=== PATIENT | female | born 1955 | race Caucasian/White ===

== ENCOUNTER → 2021-04-16 | Outpatient (CLI) | payer MEDICARE, OTHER ==
--- NOTE | 2021-04-17 12:41 | SLEEP ---
DATE OF STUDY: 04/16/2021 HOME SLEEP STUDY ATTENDING PHYSICIAN: Zainab Hansen MD. The patient is a 65-year-old who weighs 200 pounds with a BMI of 34. The patient's [place] score was 4. The patient underwent home sleep study at [facility]. Total recording time was 781 minutes. During the night study, the patient had 40 central apneas, 2 obstructive apneas, 20 mixed apneas and 107 hypopneas. The patient's AHI was 19.3 per hour. Nocturnal oximetry study revealed an average oxygen saturation was 89% with lowest of 75%. 327 minutes were spent with oxygen saturation less than 90%. Mean heart rate 96 beats per minute. IMPRESSION: 1. Moderate obstructive sleep apnea at an AHI of 19.3 per hour. 2. Nocturnal hypoxia secondary to obstructive sleep apnea and suspected hypoventilation. RECOMMENDATIONS: 1. The patient would benefit from treatment of sleep apnea with CPAP. This can be done as in-home auto titration versus in-lab CPAP titration study. 2. Once the patient is optimally treated with CPAP, then follow up in 4-6 weeks to assess compliance and to document clinical improvement. 3. Weight loss is advised. 4. Avoid CONFIGURATION ENGINEER depressants. 5. Cautioned regarding driving until symptoms of sleep apnea resolve with above recommendations. AAMIR DR: Zenobia TID: [id number] CC: ZAINAB HANSEN MD
== END ==
LOC: RT 09:21
PROVIDERS: ATTEND Family Medicine
DX: G47.33 Obstructive sleep apnea (adult) (pediatric) (principal); G47.34 Idiopathic sleep related nonobstructive alveolar hypoventilation
CPT/HCPCS: G0399

== ENCOUNTER → 2021-04-18 | Outpatient (CLI) | payer MEDICARE ==
--- NOTE | 2021-04-19 11:28 | SLEEP ---
DATE OF STUDY: 04/18/2021 SLEEP STUDY ATTENDING PHYSICIAN: Zainab Hansen MD. The patient is a 65-year-old, who weighs 200 pounds with a BMI of 34. The patient had a home sleep study and was found to have moderate MINI at an AHI of 19.3 per hour. The patient returned to the sleep lab for CPAP titration study. During the night study, the patient spent 442 minutes in bed and slept for 216 minutes with a low sleep efficiency of 49%. Sleep latency was 88 minutes with absent REM sleep. Sleep architecture showed increased stage 1 and stage 2 sleep, normal slow wave and absent REM sleep. EKG monitoring revealed an average heart rate of 97 beats per minute. Occasional sinus tachycardia observed. Maximum heart rate 107 beats per minute. PLMs were seen at index of 11 per hour and none caused the EEG arousals. The patient was started on CPAP at 5 cm water and titrated up to 9 cm water. At the final pressure, the patient slept for 61 minutes. The patient had a supine sleep, but no REM sleep. The patient's AHI was reduced to 3 per hour and oxygen saturations remained above 88% with one desaturation of 84%. IMPRESSION: 1. Moderate sleep apnea diagnosed by home sleep study. 2. Mild periodic limb movements without any significant EEG arousals. RECOMMENDATIONS: 1. CPAP at 9 cm water should be used on a nightly basis. The patient to use small size nasal pillows. 2. Follow up in 4-6 weeks to assess compliance with CPAP and to document clinical improvement. 3. Weight loss is advised. 4. Avoid HEAT TREATING FURNACE TENDER depressants. 5. Cautioned regarding driving until symptoms of sleep apnea resolve with the use of CPAP. BRYN/SHANTEL DR: Zenobia TID: [id number] CC: ZAINAB HANSEN MD
== END ==
LOC: RT 19:55
PROVIDERS: ATTEND Family Medicine
DX: G47.30 Sleep apnea, unspecified (principal); G47.61 Periodic limb movement disorder
CPT/HCPCS: 95811

== ENCOUNTER → 2021-09-11 | Outpatient (CLI) | payer MEDICARE ==
--- NOTE | 2021-09-11 10:15 | CARD ---
MR#: [id number] Date of Study: 09/11/2021 Ordering Physician: NGUYEN MARTIN, Referring Physician: NGUYEN MARTIN Tech: Josefina López [facility] APPROVED REPORT EXAM: Two-dimensional and M-mode echocardiogram with Doppler and color Doppler. Other Information Quality : AverageHR: 76bpm Rhythm : NSR INDICATION Palpitations RISK FACTORS Hypertension Obesity 2D DIMENSIONS RVDd2.8 (2.9-3.5cm)Left Atrium(2D)4.6 (1.6-4.0cm) IVSd1.2 (0.7-1.1cm)Aortic Root(2D)3.1 (2.0-3.7cm) LVDd5.1 (3.9-5.9cm)LVOT Diameter2.2 (1.8-2.4cm) PWd1.2 (0.7-1.1cm)IVSs1.5 (0.8-1.2cm) LVDs3.3 (2.5-4.0cm)FS (%) 35.2 % PWs1.7 (0.8-1.2cm)SV81.2 ml LVEF(%)64.3 (>50%) Aortic Valve AoV Peak Fahad.114.9cm/sAoV VTI26.7cm AO Peak GR.5.3mmHgLVOT Peak Fahad.107.4cm/s LVOT VTI 20.90cmAO Mean GR.5mmHg ACACIA (VMAX)2.47md2VHZ (VTI)2.93cm2 Mitral Valve MV E Axwizqsk00.2cm/sMV DECEL [id number] MV A Wapfzhvq874.4cm/sMV NSV69va E/A Ratio0.6MVA (PHT)2.33cm2 TDI E/Lateral E'9.2E/Medial E'12.2 Pulmonary Valve PV Peak Wbhvrbcj256.0cm/sPV Peak Grad.5mmHg Tricuspid Valve TR P. Jouwevat694fd/sTR Peak Gr.19mmHg LEFT VENTRICLE The left ventricle is normal size. There is mild concentric left ventricular hypertrophy. The left ve ntricular systolic function is normal. Estimated ejection fraction 55-60%. There is normal LV segmen apple wall motion. Transmitral Doppler flow pattern is Grade I-abnormal relaxation pattern. RIGHT VENTRICLE The right ventricle is normal size. There is normal right ventricular wall thickness. The right ventr icular systolic function is normal. ATRIA The left atrium size is normal. The right atrium size is normal. The interatrial septum is intact wit h no evidence for an atrial septal defect or patent foramen ovale as noted on 2-D or Doppler imaging. AORTIC VALVE The aortic valve is normal in structure and function. Doppler and Color Flow revealed no significant aortic regurgitation. There is no significant aortic valvular stenosis. MITRAL VALVE The mitral valve is normal in structure and function. There is no evidence of mitral valve prolapse. There is no mitral valve stenosis. Doppler and Color-flow revealed trace mitral regurgitation. TRICUSPID VALVE The tricuspid valve is normal in structure and function. Doppler and Color Flow revealed trace tricus pid regurgitation. Estimated PAP 25 mmHg. There is no tricuspid valve stenosis. PULMONIC VALVE The pulmonary valve is normal in structure and function. Doppler and Color Flow revealed no pulmonic valvular regurgitation. GREAT VESSELS The aortic root is normal in size. The ascending aorta is normal in size. The IVC is normal in size a nd collapses >50% with inspiration. PERICARDIAL EFFUSION There is no evidence of significant pericardial effusion. Critical Notification Critical Value: No <Conclusion> The left ventricular systolic function is normal. Estimated ejection fraction 55-60%. There is normal LV segmental wall motion. Transmitral Doppler flow pattern is Grade I-abnormal relaxation pattern. Trace mitral regurgitation. Trace tricuspid regurgitation. Estimated PAP 25 mmHg. There is no evidence of significant pericardial effusion. Signed by : Nguyen Martin, Electronically Approved : 09/11/2021 10:15:44
== END ==
LOC: ECHO 08:49
PROVIDERS: ATTEND Internal Medicine Cardiovascular Disease
DX: I51.7 Cardiomegaly (principal); R00.0 Tachycardia, unspecified; R00.2 Palpitations
CPT/HCPCS: 93306; C8929